=== PATIENT | male | born 1965 | race Caucasian/White ===

== ENCOUNTER 2016-09-10 09:02 | Day surgery (SDC) | payer MEDICAID ==
[2016-09-05 15:51] VITALS: BMI 29.5
[~2016-09-10 09:02] MED LIST: BUPIVACAINE (PF) 0.5% 4.5 ML, HYALURONIDASE, HUMAN RECOMB 150 UNIT, LIDOCAINE (PF) 90 MG IO ONE; DEXAMETHASONE SOD PHOSPHATE 10 MG/ML 1 ML VIAL IV ONE; HYDROmorphone 1 MG/ML 1 ML SYRINGE IVP PRN; LACTATED RINGERS 1,000 ML IV SCH; LIDOCAINE 1% 20 ML VIAL (10MG/ML) FOR IV START INTRADERMA PRN; MIDAZOLAM 2 MG/2 ML VIAL IV PRN; ONDANSETRON 4 MG/2 ML VIAL IVP ONE; SCOPOLAMINE 1.5MG/72HR PATCH TRANSDERM ONE; TOBRA-DEXAMET 0.3-0.1% OPHTH DROPS 2.5 ML BTL OPHTHALMIC ONE
[2016-09-10] MEDS: CYCLOPENTOLATE 1% OPHTH SOLN 2 ML BTL OP ONE ×3 (11:00→11:12)
[2016-09-10] MEDS: PHENYLEPHRINE 2.5% OPHTH DRP 2ML OP ONE ×3 (11:03→11:15)
[2016-09-10 11:07] VITALS: TEMP 97.7
[2016-09-10] MEDS ORDERED: PROPOFOL 10 MG/ML 20 ML VIAL IV ONE (11:52)
[2016-09-10] MEDS ORDERED: fentaNYL (PF) 50 MCG/ML 2 ML AMP ONE (11:52)
[2016-09-10] MEDS ORDERED: LIDOCAINE 1% INJ 10MG/ML (20 ML MDV) ONE (11:52)
[2016-09-10] MEDS ORDERED: EPINEPHrine (PF) 0.3 ML in BALANCED SALT IRRIG SOLN COMB2 500 ML IRRIGATION ONE (12:01)
[2016-09-10] MEDS ORDERED: BALANCED SALT IRRIG SOLN COMB2 500 ML IRRIGATION ONE ×3 (12:16)
[2016-09-10] MEDS ORDERED: DUOVISC KIT (GREEN BOX) INTRAOCULA ONE (12:17)
[2016-09-10] MEDS ORDERED: CHONDROITIN-SOD HYALURONATE 1 EACH SYRINGE (0.75 ML) INTRAOCULA ONE ×3 (12:24)
[2016-09-10] MEDS ORDERED: TRIAMCINOLONE ACETONIDE (PF) 40 MG/ML 1ML VIAL INTRAOCULA ONE (12:29)
[2016-09-10] MEDS ORDERED: HYALURONATE SODIUM INTRAOCULAR 1 EACH SYRINGE (12MG/ML) INTRAOCULA ONE (12:57)
[2016-09-10] MEDS ORDERED: TETRACAINE 0.5% OPHTH (PF) DROPS 4 ML BTL LEFT EYE ONE (13:06)
--- NOTE | 2016-09-10 15:52 | P.OP ---
Date of Procedure: 09/10/16 Preoperative Diagnosis: post traumatic phacodonesis Postoperative Diagnosis: same with iris disinsertion Procedure(s) Performed: vitrectomy, lens extraction, pupiloplasty Implants: LI61AO 22.0 Anesthesia: regional Surgeon: Amari Llanos Estimated Blood Loss (ml): 20 Pathology: none sent Condition: stable Disposition: same day Indications for Procedure: as above Operative Findings: lens scleral sutured, partial pupilloplasty, iris disinsertion Description of Procedure:
[2016-09-10 16:26] VITALS: RESP 18
[2016-09-10 16:27] VITALS: BP 101/53; PULSE 45
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
== END 2016-09-10 16:48 | disposition home or self-care (01) ==
LOC: OR 09:02
PROVIDERS: ATTEND Ophthalmology
DX: H27.10 Unspecified dislocation of lens (principal); S05.92XA Unspecified injury of left eye and orbit, initial encounter; H52.31 Anisometropia; Z87.820 Personal history of traumatic brain injury
CPT/HCPCS: 66984; 66762; 67015; C1780; J3470; J1100; J2001 ×2; J2405; J0171; J3010; J3300; J2704

== ENCOUNTER 2016-09-24 08:30 | Day surgery (SDC) | payer MEDICAID ==
[2016-09-19 10:09] VITALS: BMI 28.8
[~2016-09-24 08:30] MED LIST changes: +BUPIVACAINE (PF) 0.5% 4.5 ML, HYALURONIDASE, HUMAN RECOMB 150 UNIT, LIDOCAINE (PF) 90 MG IO NR; -BUPIVACAINE (PF) 0.5% 4.5 ML, HYALURONIDASE, HUMAN RECOMB 150 UNIT, LIDOCAINE (PF) 90 MG IO ONE; -DEXAMETHASONE SOD PHOSPHATE 10 MG/ML 1 ML VIAL IV ONE; -HYDROmorphone 1 MG/ML 1 ML SYRINGE IVP PRN; -LIDOCAINE 1% 20 ML VIAL (10MG/ML) FOR IV START INTRADERMA PRN; -MIDAZOLAM 2 MG/2 ML VIAL IV PRN; +MOXIFLOXACIN HCL 0.5% DROPS 3 ML BTL LEFT EYE PRN; -ONDANSETRON 4 MG/2 ML VIAL IVP ONE; -SCOPOLAMINE 1.5MG/72HR PATCH TRANSDERM ONE; -TOBRA-DEXAMET 0.3-0.1% OPHTH DROPS 2.5 ML BTL OPHTHALMIC ONE
[2016-09-24 09:26] VITALS: RESP 16; TEMP 98
[2016-09-24] MEDS ORDERED: PROPOFOL 10 MG/ML 20 ML VIAL IV ONE (10:32)
[2016-09-24] MEDS ORDERED: GLYCOPYRROLATE 0.2 MG/ML 2 ML VIAL ONE (10:32)
[2016-09-24] MEDS ORDERED: HYDROCORTISONE SUCCINATE 100 MG/2 ML VIAL ONE (10:32)
[2016-09-24] MEDS ORDERED: fentaNYL (PF) 50 MCG/ML 2 ML AMP ONE (10:32)
[2016-09-24] MEDS ORDERED: MIDAZOLAM 2 MG/2 ML VIAL ONE (10:32)
[2016-09-24] MEDS ORDERED: BUPIVACAINE (PF) 0.5% 30 ML VIAL ONE (10:43)
[2016-09-24] MEDS ORDERED: EPINEPHrine (PF) 0.3 ML in BALANCED SALT IRRIG SOLN COMB2 500 ML IRRIGATION ONE (10:44)
[2016-09-24] MEDS: TOBRA-DEXAMET 0.3-0.1% OPHTH DROPS 2.5 ML BTL OPHTHALMIC NR ×2 (11:01→11:29)
[2016-09-24] MEDS ORDERED: BALANCED SALT IRRIG SOLN COMB2 15 ML IRRIG.SOLN IRRIGATION ONE (11:05)
[2016-09-24] MEDS ORDERED: BUPIVACAIN-EPI 0.5%-1:200,000 30 ML VIAL SQ ONE (11:09)
[2016-09-24] MEDS ORDERED: CHONDROITIN-SOD HYALURONATE 1 EACH SYRINGE (0.75 ML) INTRAOCULA ONE ×2 (11:10)
[2016-09-24] MEDS ORDERED: TIMOLOL 0.5% OPHTH DROPS 5 ML BTL LEFT EYE ONE (11:32)
[2016-09-24] MEDS ORDERED: TETRACAINE 0.5% OPHTH (PF) DROPS 4 ML BTL LEFT EYE ONE ×2 (12:50)
[2016-09-24] MEDS ORDERED: ACETYLCHOLINE CHLORIDE 10 MG/ML 2 ML KIT INTRAOCULA ONE (13:19)
--- NOTE | 2016-09-24 14:12 | P.OP ---
Date of Procedure: 09/24/16 Preoperative Diagnosis: iridodialysis and traumitc mydriasis Postoperative Diagnosis: same with residual lens nucleus in posterior chamber. Procedure(s) Performed: repair iridodialysis & persistent mydriasis Implants: none Anesthesia: regional Surgeon: Amari Llanos Estimated Blood Loss (ml): 5 Pathology: other (Gram stain & C&S) Condition: stable Disposition: same day Indications for Procedure: trauma to left eye Operative Findings: No complications Description of Procedure:
[2016-09-24 14:22] VITALS: BP 118/72; PULSE 50
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
== END 2016-09-24 15:19 | disposition home or self-care (01) ==
LOC: OR 08:30
PROVIDERS: ATTEND Ophthalmology
DX: H57.04 Mydriasis (principal); H21.532 Iridodialysis, left eye; S05.92XA Unspecified injury of left eye and orbit, initial encounter; W31.89XA Contact with other specified machinery, initial encounter; Z79.899 Other long term (current) drug therapy
CPT/HCPCS: 66680; 87070; 87205; 87075; J2250; J3470; J1720; J2001; J0171; J3010; J2704

== ENCOUNTER 2018-09-22 11:11 | Day surgery (SDC) | payer MEDICAID ==
[2018-09-17 11:10] VITALS: BMI 28.0
[~2018-09-22 11:11] MED LIST changes: -BUPIVACAINE (PF) 0.5% 4.5 ML, HYALURONIDASE, HUMAN RECOMB 150 UNIT, LIDOCAINE (PF) 90 MG IO NR; +LIDOCAINE 1% 20 ML VIAL (10MG/ML) FOR IV START INTRADERMA PRN; -MOXIFLOXACIN HCL 0.5% DROPS 3 ML BTL LEFT EYE PRN; +MOXIFLOXACIN HCL 0.5% DROPS 3 ML BTL OP ONE
[2018-09-22 11:49] VITALS: TEMP 97.5
[2018-09-22] MEDS ORDERED: fentaNYL (PF) 50 MCG/ML 2 ML AMP ONE (12:47)
[2018-09-22] MEDS ORDERED: MIDAZOLAM 2 MG/2 ML VIAL ONE (12:47)
[2018-09-22] MEDS ORDERED: PROPOFOL 10 MG/ML 20 ML VIAL IV ONE (12:47)
[2018-09-22] MEDS ORDERED: LIDOCAINE 1% INJ 10MG/ML (20 ML MDV) ONE (12:47)
[2018-09-22] MEDS ORDERED: TETRACAINE 0.5% OPHTH DROPS 15 ML BTL LEFT EYE ONE (12:49)
[2018-09-22] MEDS ORDERED: LIDOCAINE 2%-EPI 1:100,000 20 ML VIAL SUBMUCOSAL ONE (12:54)
[2018-09-22] MEDS ORDERED: BALANCED SALT IRRIG SOLN COMB2 15 ML IRRIG.SOLN IRRIGATION ONE (12:55)
[2018-09-22] MEDS ORDERED: NEOMYCIN-POLYMYXIN-DEXAMETH OINT 3.5 GM TUBE LEFT EYE ONE ×2 (12:57→13:01)
--- NOTE | 2018-09-22 13:10 | P.OP ---
Date of Procedure: 09/22/18 Preoperative Diagnosis: traumatic entropion & trichiasis Postoperative Diagnosis: same Procedure(s) Performed: cryotherapy to LLL eyelashes Implants: none Anesthesia: MAC, regional Surgeon: Amari Llanos Pathology: none sent Condition: stable Disposition: same day Indications for Procedure: scratching cornea wstih recurrent erosions Operative Findings: no complications
[2018-09-22 13:14] VITALS: RESP 17
[2018-09-22 13:21] VITALS: BP 114/69; PULSE 53
--- NOTE | 2018-09-22 20:14 | OP ---
OPERATIVE REPORT DATE OF PROCEDURE: September 22, 2018. PROCEDURE: Cryotherapy to the lower lid eyelashes on the left eye. 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 SURGEON: Dr. Amari Llanos. ANESTHESIA: Regional block with modified Van Lint. ESTIMATED BLOOD LOSS: Estimated blood loss is none. SPECIMEN: Taken none. NARRATIVE: After obtaining the appropriate consent, the patient was brought to the operating room. There he was placed under cardiac monitoring and brought under the influence of propofol anesthesia. While he was sufficiently twilighted, the lower lid was injected with 2% lidocaine and epinephrine into the entire lower lid in a modified Van Lint fashion. Tetracaine was placed on the patient's cornea and a protective eye cover was placed on the left eye. Once this was all set in place, using a hammer head cryo probe was placed against the lash line and left in place long enough to create an area of frozen tissue surrounding the probe. It was irrigated then with balanced salt solution and released and this was repeated across the extent of the entire lower lid 2 times. Examination and removal of the eyelashes that were present was attempted using tying forceps and it was felt that the eyelashes remained fairly imbedded within the eyelid. Therefore, 1 final pass with the cryoprobe in a similar fashion of freeze thaw was then passed across the lower lid to its entire extent. Removal of all visible eyelashes was accomplished using the tying instrument. Once this was accomplished, the eye protector was removed and Maxitrol was used to cover the patient's eye as well as the lower eyelid. He was then lightly patched at the end of the case. COMPLICATIONS: There were no complications from the procedure. He tolerated the procedure well, was returned to outpatient recovery in good condition. MMODL / IJN: [id number] /
== END 2018-09-22 13:40 | disposition home or self-care (01) ==
LOC: OR 11:11
PROVIDERS: ATTEND Ophthalmology
DX: H02.0 Entropion and trichiasis of eyelid (principal); S05.92XS Unspecified injury of left eye and orbit, sequela; X58.XXXS Exposure to other specified factors, sequela; H18.832 Recurrent erosion of cornea, left eye; H17.9 Unspecified corneal scar and opacity; H02.409 Unspecified ptosis of unspecified eyelid; H40.052 Ocular hypertension, left eye; Z98.890 Other specified postprocedural states; Z96.1 Presence of intraocular lens; Z98.42 Cataract extraction status, left eye; Z79.899 Other long term (current) drug therapy; Z87.820 Personal history of traumatic brain injury; Z83.511 Family history of glaucoma; Z83.518 Family history of other specified eye disorder; Z80.9 Family history of malignant neoplasm, unspecified; Z82.49 Family history of ischemic heart disease and other diseases of the circulatory system
CPT/HCPCS: 67825; J2250; J2001; J3010; J2704

== ENCOUNTER → 2023-12-18 | Outpatient (CLI) | payer MEDICAID ==
[2023-12-18 11:22] LABS: Basophils # (A) 0.04 X 10*3/uL (0.00-0.10); Basophils % (A) 0.6 %; Eosinophils # (A) 0.34 X 10*3/uL (0.04-0.35); Eosinophils % (A) 5.1 %; HGB 14.8 g/dL (13.0-17.0); Lymphocytes % (A) 33.3 %; MCH 29.3 pg (27.0-32.0); MCHC 32.9 g/dL (32.0-37.0); MCV 89.1 FL (80.0-97.0); Monocytes # (A) 0.65 X 10*3/uL (0.20-1.00); Monocytes % (A) 9.8 %; NRBC Per 100 WBC 0 X 10*3/uL (0.00-0.01); Neutrophils # (A) 3.37 X 10*3/uL (1.80-7.70); Platelet Count 190 X 10*3/uL (140-440); RBC 5.05 X 10*6/uL (4.40-5.60); RDW 13.2 % (11.5-14.5); WBC 6.61 X 10*3/uL (4.50-10.00)
[2023-12-18 11:45] LABS: ALT 32 U/L (10-49); AST 26 U/L (14-35); Albumin 4.3 g/dL (3.8-4.9); Albumin/Globulin Ratio 1.87 Ratio (1.60-3.17); Alkaline Phosphatase 131 U/L (41-126); Blood Urea Nitrogen 25.7 mg/dL (9.0-27.0); Calcium 9.1 mg/dL (8.7-10.3); Carbon Dioxide 27.7 mmol/L (21.6-31.8); Chloride 105 mmol/L (96-109); Chol/HDL Ratio 4.63 Ratio; Globulin 2.3 g/dL (1.6-3.3); Glucose 92 mg/dL (70-110); LDL Cholesterol,Calculated 143.7 mg/dL (0.0-131.0); Potassium 4.1 mmol/L (3.5-5.5); Prostate Specific Antigen 5.25 ng/mL (0.000-3.500); Sodium 142 mmol/L (135-145); Total Bilirubin 1.2 mg/dL (0.3-1.2); Total Protein 6.6 g/dL (6.2-8.2)
== END | disposition home or self-care (01) ==
LOC: LABWHC1 06:52
PROVIDERS: ATTEND Family Medicine
DX: Z79.899 Other long term (current) drug therapy (principal); Z00.00 Encounter for general adult medical examination without abnormal findings; Z13.220 Encounter for screening for lipoid disorders; Z13.29 Encounter for screening for other suspected endocrine disorder; Z13.228 Encounter for screening for other metabolic disorders; Z12.5 Encounter for screening for malignant neoplasm of prostate
CPT/HCPCS: 36415; 80053; 80061; 84153; 84443; 85025

== ENCOUNTER → 2024-06-15 | Outpatient (CLI) | payer MEDICAID ==
[2024-06-15 10:39] LABS: Basophils # (A) 0.06 X 10*3/uL (0.00-0.10); Basophils % (A) 0.8 %; Eosinophils # (A) 0.43 X 10*3/uL (0.04-0.35); HCT 45.2 % (39.6-50.0); HGB 14.6 g/dL (13.0-17.0); Lymphocytes # (A) 2.48 X 10*3/uL (0.90-5.00); Lymphocytes % (A) 34.4 %; MCH 28.9 pg (27.0-32.0); MCHC 32.3 g/dL (32.0-37.0); MCV 89.3 FL (80.0-97.0); Mean Platelet Volume 10.2 FL (9.5-12.2); Monocytes # (A) 0.59 X 10*3/uL (0.20-1.00); Monocytes % (A) 8.2 %; NRBC Per 100 WBC 0 X 10*3/uL (0.00-0.01); Neutrophils # (A) 3.63 X 10*3/uL (1.80-7.70); Neutrophils % (A) 50.3 %; Platelet Count 235 X 10*3/uL (140-440); RBC 5.06 X 10*6/uL (4.40-5.60); WBC 7.21 X 10*3/uL (4.50-10.00)
[2024-06-15 11:09] LABS: ALT 22 U/L (10-49); AST 25 U/L (14-35); Albumin 4.3 g/dL (3.8-4.9); Albumin/Globulin Ratio 1.59 Ratio (1.60-3.17); Alkaline Phosphatase 146 U/L (41-126); Blood Urea Nitrogen 23.5 mg/dL (9.0-27.0); Calcium 9.2 mg/dL (8.7-10.3); Carbon Dioxide 27.4 mmol/L (21.6-31.8); Chloride 102 mmol/L (96-109); Chol/HDL Ratio 3.57 Ratio; Globulin 2.7 g/dL (1.6-3.3); Glucose 96 mg/dL (70-110); Potassium 4.6 mmol/L (3.5-5.5); Sodium 140 mmol/L (135-145); Total Bilirubin 0.3 mg/dL (0.3-1.2); VLDL Calculation 16.86 mg/dL (5.00-40.00)
== END | disposition home or self-care (01) ==
LOC: LABWHC1 06:58
PROVIDERS: ATTEND Family Medicine
DX: Z13.228 Encounter for screening for other metabolic disorders (principal); Z13.220 Encounter for screening for lipoid disorders; Z13.29 Encounter for screening for other suspected endocrine disorder
CPT/HCPCS: 36415; 80053; 80061; 84443; 85025

== ENCOUNTER → 2024-08-22 | Outpatient (CLI) | payer MEDICAID | END | disposition home or self-care (01) | LOC: LABWHC1 07:16 | PROVIDERS: ATTEND Urology | DX: R97.20 Elevated prostate specific antigen [PSA] (principal) | CPT/HCPCS: 36415; 84153 ==